=== PATIENT | male | born 1965 | race Caucasian/White ===

== ENCOUNTER 2018-02-05 07:51 | Emergency (ER) | payer OTHER, BC ==
[2018-02-05 08:28] VITALS: PULSE 81; TEMP 97.6; BMI 35.6
--- NOTE | 2018-02-05 08:36 | PDOC ---
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 Patient slipped on a patch of ice landed on his right hip no other injuries sustained no head injuries no neck injuries no head pain or neck pain landed on his right hip was able to ambulate. Injury occurred while at work. Complaining of 6 out of 10 pain at rest 8 out of 10 pain with ambulation has been him to walk with a slight limp. Pain is described as an ache worse with movement alleviated somewhat by rest nonradiating located predominantly to his right hip. No other injury sustained Past History - Past Medical History Allergies/Adverse Reactions: Allergies Allergy/AdvReac Type Severity Reaction Status Date / Time No Known Allergies Allergy Verified 02/05/18 07:54 Home Medications: Ambulatory Orders Alprazolam [Xanax] 1 mg PO HS 02/05/18 Hydrochlorothiazide [Hctz -] 25 mg PO DAILY 02/05/18 Hypercholesterolemia: Yes - Suicide/Smoking/Psychosocial Hx Smoking History: Former smoker Have you smoked in the past 12 months: No If you are a former smoker, when did you quit?: 2009 Hx Alcohol Use: Yes (SOCIAL) Drug/Substance Use Hx: No Substance Use Type: None Review of Systems - Review of Systems Comments:: 02/05/18 08:37 ROS: A complete review of 10 out of 10 review of systems is taken and is negative apart from what is previously mentioned below and in the HPI. *Physical Exam - Physical Exam Comments: 02/05/18 08:38 Vitals: Triage Vital signs reviewed General Appearance: no acute distress, well nourished well developed, Head: Atraumatic, Neck: Supple;No Nucal rigidity, no midline tenderness palpation. Negative and Nexus criteria. Chest Wall: Nontender Extremities: Full range of motion to all extremities, no cyanosis, clubbing, or edema Musculoskeletal: Tenderness palpation to the right greater trochanter, no obvious bruising or deformity, full range of motion, neurovascularly intact distally, Skin: Warm and dry, no rashes or lesions, no rash, no petechiae Neuro: AOX3; Cranial Nerves 2-12 grossly intact, Strength intact to all extremities, Sensation intact to all extremities,gait normal Psych: normal mood, normal affect Medical Decision Making - Medical Decision Making 02/05/18 08:39 52 years old with mechanical slip and fall landed on right hip. Differential diagnosis includes bone bruise for subtle fracture We'll obtain x-ray and reassess. Offer patient pain medication but did not want any. No acute fracture dislocation noted on x-ray patient feels better able to comfortably ambulate Findings, the need for follow-up, strict return instructions discussed with patient *DC/Admit/Observation/Transfer Diagnosis at time of Disposition: Bone bruise - Discharge Dispostion Disposition: HOME Condition at time of disposition: Stable Admit: No - Referrals Referrals: Janusz Correa MD [Staff Physician] - - Patient Instructions Printed Discharge Instructions: Hip Pointers Additional Instructions: Ice affected hip 20 minutes on 20 minutes off. Rest. [id number] Motrin as directed on package as needed for pain. If still having pain for greater than 1 week follow-up with orthopedics. Return to the emergency department for any severe worsening symptoms uncontrollable pain or for any concerns. - Post Discharge Activity Forms/Work/School Notes: Back to Work
[2018-02-05 09:41] VITALS: BP 154/101
== END 2018-02-05 09:44 | disposition home or self-care (01) ==
LOC: FER 07:51
DX: T14.8XXA Other injury of unspecified body region, initial encounter (principal); W00.0XXA Fall on same level due to ice and snow, initial encounter; Y93.9 Activity, unspecified; Y92.9 Unspecified place or not applicable; Y99.0 Civilian activity done for income or pay; Z87.891 Personal history of nicotine dependence; I10 Essential (primary) hypertension
CPT/HCPCS: 73523-TC-FY; 99282-25

== ENCOUNTER 2019-02-06 01:16 | Emergency (ER) | payer BC ==
[2019-02-06 02:09] VITALS: BP 145/116; PULSE 109; TEMP 97.9; BMI 27.1
--- NOTE | 2019-02-06 02:19 | PDOC ---
History of Present Illness - General Chief Complaint: Shortness of Breath Stated Complaint: ADVERSE REACTION Time Seen by Provider: 02/06/19 02:01 History Source: Patient Exam Limitations: No Limitations - History of Present Illness Initial Comments: 02/06/19 02:16 53y M hx of htn, anxiety, presents with possible adverse reaction. Pt recently started on phentamine for weightloss, had pulled an all nighter yesterday, then gone to work and went to bed around 6pm. Around 7pm, his landlord woke him up due to him screaming and yelling. He states he was dreaming that he was fighting with someone. He went back to bed and woke up later with similar symptoms and was screaming and yelling. pt does complain of a hoarse voice due to the screaming pt denies taking any other drugs no headache, cp, sob, palpitations, cough, abd pain, back pain, dysuria,diarrhea no other psych history PMD: Dr. Ng Past History - Past Medical History Allergies/Adverse Reactions: Allergies Allergy/AdvReac Type Severity Reaction Status Date / Time No Known Allergies Allergy Verified 02/06/19 02:08 Home Medications: Ambulatory Orders Alprazolam [Xanax] 1 mg PO HS 02/05/18 Hydrochlorothiazide [Hctz -] 25 mg PO DAILY 02/05/18 COPD: No HTN: Yes Hypercholesterolemia: Yes - Suicide/Smoking/Psychosocial Hx Smoking History: Unknown if ever smoked Have you smoked in the past 12 months: No If you are a former smoker, when did you quit?: 2009 Information on smoking cessation initiated: No Hx Alcohol Use: No Drug/Substance Use Hx: No Substance Use Type: None Review of Systems - Review of Systems Able to Perform ROS?: Yes Comments:: 02/06/19 02:41 Constitutional - no reported Fever, Chills, HEENT: +hoarse voice no reported vision changes, sore throat Respiratory: no reported cough, sob, hemoptysis Cardiac: no reported chest pain, palpitations, light headedness, leg swelling Abd/GI: no reported abd pain, nausea, vomiting, blood per rectum, melena, diarrhea : no reported dysuria, frequency, discharge Musculskelatal - no reported back pain, joint swelling skin - no reported bruising, erythema, rash neurological: no reported headache, numbness, focal weakness, tingling, ataxia, hematologic: no reported easy bruising, easy bleeding *Physical Exam - Vital Signs Last Vital Signs Temp Pulse Resp BP Pulse Ox 97.9 F 109 H 20 145/116 H 96 02/06/19 02:08 02/06/19 02:08 02/06/19 02:08 02/06/19 02:08 02/06/19 02:08 - Physical Exam Comments: 02/06/19 02:41 GENERAL: The patient is awake, alert, and fully oriented, Nontoxic - in no acute distress. HEAD: Normocephalic, atraumatic. EYES: extraocular movements intact, sclera anicteric, conjunctiva clear. ENT: hoarse voice, Moist mucous membranes. NECK: Normal range of motion, supple LUNGS: Breath sounds equal, clear to auscultation bilaterally. No wheezes, no rhonchi, no rales. HEART: Regular rate and rhythm, normal S1 and S2 without murmur, rub or gallop. ABDOMEN: Soft, nontender, normoactive bowel sounds. No guarding, no rebound. . No CVA tenderness EXTREMITIES: Normal range of motion, no edema. No clubbing or cyanosis. No cords, erythema, or tenderness. NEUROLOGICAL: No facial assymetry, Normal speech, PSYCH: Normal mood, normal affect. SKIN: Warm, Dry, normal turgor, Moderate Sedation - Procedure Monitoring Vital Signs: Procedure Monitoring Vital Signs Temperature 97.9 F 02/06/19 02:08 Pulse Rate 109 H 02/06/19 02:08 Respiratory Rate 20 02/06/19 02:08 Blood Pressure 145/116 H 02/06/19 02:08 O2 Sat by Pulse Oximetry (%) 96 02/06/19 02:08 Medical Decision Making - Medical Decision Making 02/06/19 02:42 suspect viviud dreams, possible as he skipped a night of sleep denies any other drug use pts exam unremarkable without other complaints HR upona rrival was alittle tachy but suspect due to dehydration as pt felt significnat better after oral hydration repeat HR was 101 will dc with pmd fu will have pt stop taking the new medications return precautions were discussed I discussed the physical exam findings, ancillary test results and final diagnoses with the patient. I answered all of the patient's questions. The patient was satisfied with the care received and felt comfortable with the discharge plan and treatment plan. The patient will call their primary care physician within 24 hours to arrange follow-up and will return to the Emergency Department with any new, persistent or worsening symptoms. *DC/Admit/Observation/Transfer Diagnosis at time of Disposition: Vivid dream - Discharge Dispostion Disposition: HOME Condition at time of disposition: Improved Decision to Admit order: No - Referrals Referrals: Lyle Ng MD [Primary Care Provider] - - Patient Instructions Additional Instructions: Return to the emergency department immediately with ANY new, persistent or worsening symptoms. Your symptoms may be due to the mediaiton - stop taking it until you see Dr. Ng. You MUST call and follow up with your doctor tomorrow for further evaluation of your symptoms. Results were discussed with you. Please make sure your doctor reviews the results of your emergency evaluation. If you had any xrays during your visit, it was read preliminarily by myself, a Radiologist will review it and if there are any additional findings we will call you. - Post Discharge Activity
== END 2019-02-06 03:09 | disposition home or self-care (01) ==
LOC: JER 01:16
DX: F51.5 Nightmare disorder (principal); F41.9 Anxiety disorder, unspecified; E78.00 Pure hypercholesterolemia, unspecified
CPT/HCPCS: 99281-25

== ENCOUNTER 2021-06-01 19:38 | Emergency (ER) | payer BC ==
[2021-06-01 19:52] VITALS: BP 158/105; PULSE 85; TEMP 98.5; BMI 35.9
[2021-06-01] MEDS ORDERED: SODIUM CHLORIDE 1,000 ML IV STA (21:02)
[2021-06-01] MEDS ORDERED: ONDANSETRON 4 MG/2 ML VIAL IVPUSH ONE (21:03)
[2021-06-01] MEDS ORDERED: ONDANSETRON 4 MG/2 ML VIAL ONE (21:06)
[2021-06-01 21:29] LABS: BASO % 0.6 % (0-2.0); EOS % 0.4 % (0-4.5); HEMATOCRIT 44.3 % (35.4-49); HEMOGLOBIN 15.4 GM/dl (11.7-16.9); LYMPH % 11.5 % (8-40); MCHC 34.7 g/dl (32.0-35.9); MEAN CELL VOLUME 83.6 fl (80-96); MEAN PLT VOLUME 7.8 fl (7.5-11.1); MONO % 6.1 % (3.8-10.2); NEUT % 81.4 % (42.8-82.8); PLATELET COUNT 236 10^3/uL (134-434); RDW 13.7 % (11.9-15.9); WHITE BLOOD COUNT 10.6 K/mm3 (4.0-10.8)
[2021-06-01 21:40] LABS: INR 1.17 (0.82-1.09)
[2021-06-01 21:46] LABS: ALBUMIN 3.9 g/dl (3.4-5.0); CALCIUM 8.8 mg/dl (8.5-10); CREATININE 1.1 mg/dl (0.55-1.3); TOT PROT 7.3 g/dl (6.4-8.2)
[2021-06-01 23:01] LABS: EPITHELIAL CELLS FEW /hpf
[2021-06-01] MEDS ORDERED: CIPROFLOXACIN 500 MG TABLET (RESTRICTED TO ID) PO ONE (23:09)
[2021-06-01] MEDS ORDERED: CIPROFLOXACIN 250 MG TABLET (RESTRICTED TO ID) PO ONE (23:11)
== END 2021-06-01 23:18 | disposition home or self-care (01) ==
LOC: FER 19:38
PROC: 3E033GC Introduction of Other Therapeutic Substance into Peripheral Vein, Percutaneous Approach (ICD-10-PCS; principal; 2021-06-01)
PROC: 3E0337Z Introduction of Electrolytic and Water Balance Substance into Peripheral Vein, Percutaneous Approach (ICD-10-PCS; 2021-06-01)
DX: R31.9 Hematuria, unspecified (principal)
CPT/HCPCS: 36415; 74176-TC; 80053; 81003; 81015; 85025; 85610; 87086; 99284-25

== ENCOUNTER 2022-07-25 04:07 | Day surgery (SDC) | payer BC ==
[2022-07-24 08:00] VITALS: BMI 39.7
[2022-07-25 12:32] VITALS: TEMP 97.6
[2022-07-25 12:33] VITALS: PULSE 62; RESP 15
[2022-07-25 12:34] VITALS: BP 116/74
== END 2022-07-25 12:45 | disposition home or self-care (01) ==
LOC: JASU-ENDO 04:07
PROVIDERS: ATTEND Internal Medicine Gastroenterology
PROC: 0DBL8ZX Excision of Transverse Colon, Via Natural or Artificial Opening Endoscopic, Diagnostic (ICD-10-PCS; principal; 2022-07-25 12:00)
DX: Z12.11 Encounter for screening for malignant neoplasm of colon (principal); D12.3 Benign neoplasm of transverse colon; Z86.010 Personal history of colon polyps; Z80.0 Family history of malignant neoplasm of digestive organs; I10 Essential (primary) hypertension
CPT/HCPCS: 88305-TC